=== PATIENT | female | born 1975 | race Caucasian/White ===

== ENCOUNTER 2022-03-29 16:10 | Emergency (ER) | payer SELFPAY ==
[~2022-03-29] VITALS: Ht 170.2 cm; Wt 59.1 kg
[2022-03-29 16:16] VITALS: BP 121/88
[2022-03-29 16:35] LABS: CLARITY,URINE CLEAR (Clear); COLOR,URINE YELLOW (Yellow); GLUCOSE, URINE NEGATIVE (Neg); KETONES,URINE 40 mg/dl (Neg); LEUKOCYTE ESTERASE ,URINE NEGATIVE (Neg); NITRITES, URINE NEGATIVE (Neg); OCCULT BLOOD,URINE TRACE-INTACT (Neg); PH,URINE 6.5 (4.8-8.0); PROTEIN,URINE NEGATIVE (Neg); UROBILINOGEN,URINE 0.2 E.U/dL (0.2-1.0)
[2022-03-29 16:37] LABS: URINE HCG NEGATIVE (NEG)
[2022-03-29 16:38] LABS: UA COLLECTION TYPE CLN CATCH MIDSTREAM
[2022-03-29 16:39] LABS: BACTERIA,URINE FEW /HPF (Neg); MUCUS STRANDS FEW /LPF (Neg); RBC,URINE 0-2 /HPF (0-2); SQUAMOUS EPITHELIAL CELL,UR MANY /LPF (FEW); WBC,URINE 0-4 /HPF (0-4)
--- NOTE | 2022-03-29 17:02 | NUR ---
Patient reports intermittent headache since yesterday with fever, chills, nausea and intermittet RUQ abdominal pain; denies urinary symptoms.
[2022-03-29 17:03] LABS: BASOPHILS % (AUTO) 0.5 % (0-1); EOSINOPHILS % (AUTO) 0 % (0-6); HEMATOCRIT 37.4 % (35.0-45.0); HEMOGLOBIN 12.6 g/dl (12.0-16.0); LYMPHOCYTES # (AUTO) 0.7 X10'3 (1.1-4.8); LYMPHOCYTES % (AUTO) 22.9 % (21-51); MEAN CORPUSCULAR HEMOGLOBIN 29.9 PG (27.0-31.0); MEAN CORPUSCULAR HGB CONC 33.6 g/dL (33.0-36.5); MEAN PLATELET VOLUME 8.3 FL (7.4-10.4); MONOCYTES # (AUTO) 0.6 X10'3 (0-0.9); MONOCYTES % (AUTO) 20.1 % (2-12); NEUTROPHILS # (AUTO) 1.7 X10'3 (1.8-7.7); NEUTROPHILS % (AUTO) 56.5 % (42-75); PLATELET COUNT 176 X10'3 (140-440); RED CELL DISTRIBUTION WIDTH 13.7 % (11.5-14.5)
[2022-03-29 17:13] LABS: ALANINE AMINOTRANSFERASE 13 U/L (12-78); ALBUMIN 3.8 G/DL (3.4-5.0); ALBUMIN/GLOBULIN RATIO 1.2 (1.1-1.5); ALKALINE PHOSPHATASE 39 IU/L (46-116); AMYLASE 47 U/L (25-115); ANION GAP 11 (8-16); ASPARTATE AMINO TRANSFERASE 13 U/L (10-37); BILIRUBIN,TOTAL 0.2 MG/DL (0.1-1.0); BLOOD UREA NITROGEN 7 MG/DL (7-18); BUN/CREATININE RATIO 8.3 (6.6-38.0); CALCIUM 8.2 MG/DL (8.5-10.1); CHLORIDE 105 MMOL/L (99-107); CREATININE 0.84 MG/DL (0.40-0.90); GLUCOSE 102 MG/DL (70-104); LIPASE 214 U/L (73-393); POTASSIUM 3.4 MMOL/L (3.5-5.1); SODIUM 142 MMOL/L (135-145); TOTAL CARBON DIOXIDE 26.3 MMOL/L (24-32); eGFR 73 ML/MIN
[2022-03-29 17:19] LABS: PLATELET ESTIMATE NORMAL; TOTAL CELLS COUNTED 100
== END 2022-03-29 17:52 | disposition home or self-care (01) ==
LOC: ER 16:11 → EEVIPCON 16:11 → ER 17:52
DX: R50.9 Fever, unspecified (principal); R05.9 Cough, unspecified; R51.9 Headache, unspecified; R11.0 Nausea; F17.200 Nicotine dependence, unspecified, uncomplicated
CPT/HCPCS: 71046; 80053; 81001; 81025; 82150; 83690; 85007; 85025; 99284

== ENCOUNTER 2022-04-03 08:23 | Emergency (ER) | payer BC ==
[~2022-04-03] VITALS: Ht 170.2 cm; Wt 56.8 kg
[2022-04-03 08:39] VITALS: BP 142/83
== END 2022-04-03 13:41 | disposition home or self-care (01) ==
LOC: EEVIPCON 08:23 → ER 08:23
DX: U07.1 COVID-19 (principal); R10.84 Generalized abdominal pain; R19.7 Diarrhea, unspecified; R11.0 Nausea; R53.83 Other fatigue
CPT/HCPCS: 87635; 99283; C9803